=== PATIENT | female | born 1985 | race African-American/Black ===

== ENCOUNTER 2020-02-12 02:55 | Inpatient (IN) | payer OTHER ==
[~2020-02-12] VITALS: Ht 162.6 cm; Wt 54.4 kg
[2020-02-12] MEDS ORDERED: ONDANSETRON HCL 4MG/2ML INJ IV STA (03:15)
[2020-02-12] MEDS ORDERED: SODIUM CHLORIDE 0.9% 1000ML BAG (SEPSIS BOLUS) IV ONE (03:15)
[2020-02-12 04:24] LABS: CLARITY URINE CLOUDY (CLEAR); COLOR URINE ORANGE (YELLOW); HEMATOCRIT. 31.1 % (36.0-48.0); HEMOGLOBIN. 10.4 g/dL (12.0-16.0); KETONES URINE 4+ (NEGATIVE); LEUKOCYTE ESTERASE URINE TRACE (NEGATIVE); MEAN CORPUSCULAR HEMOGLOBIN 32.5 pg (28.0-32.0); MEAN CORPUSCULAR VOLUME 97.1 fL (81.0-99.0); MEAN PLATELET VOLUME 7.6 fl (7.4-10.4); NITRITE URINE NEGATIVE (NEGATIVE); OCCULT BLOOD URINE NEGATIVE (NEGATIVE); PH URINE 5.5 (4.5-8.0); PLATELET 89 x1000/uL (130-400); PROTEIN URINE 2+ (NEGATIVE); RED CELL DISTRIBUTION WIDTH 19.6 % (11.6-14.6); SPECIFIC GRAVITY URINE 1.036 (1.005-1.030)
[2020-02-12 04:31] LABS: CHLORIDE 99 mEq/L (98-107)
[2020-02-12 04:38] LABS: PROTHROMBIN TIME 10.6 sec (9.6-11.0)
[2020-02-12 04:39] LABS: HCG SCREEN NEGATIVE
[2020-02-12 04:53] LABS: PLATELET ESTIMATE DECREASED
[2020-02-12] MEDS ORDERED: KETOROLAC 30MG/ML VIAL IV SCH (05:00)
[2020-02-12] MEDS ORDERED: CLONIDINE 0.2MG TABLET PO ONE (05:00)
[2020-02-12] MEDS ORDERED: POTASSIUM CHLORIDE 20MEQ TABLET SR PO SCH (07:15)
[2020-02-12] MEDS ORDERED: GUAIFENESIN 200MG/10ML SUGAR FREE UDC PO PRN (07:15)
[2020-02-12] MEDS ORDERED: CLONIDINE 0.1MG TABLET PO PRN (07:15)
[2020-02-12] MEDS ORDERED: ALBUTEROL 6.7GM HFA INHALER ORI PRN (07:15)
[2020-02-12] MEDS ORDERED: DOCUSATE SODIUM 100MG CAPSULE PO PRN (07:15)
[2020-02-12] MEDS ORDERED: LORAZEPAM 0.5MG TABLET PO PRN (07:15)
[2020-02-12] MEDS ORDERED: ONDANSETRON HCL 4MG/2ML INJ IV PRN (07:15)
[2020-02-12] MEDS ORDERED: NITROGLYCERIN 0.4MG TABLET SL SL PRN (07:15)
[2020-02-12] MEDS ORDERED: ACETAMINOPHEN 325MG TABLET PO PRN ×2 (07:15)
[2020-02-12] MEDS ORDERED: KETOROLAC 15MG/ML VIAL IV PRN (07:15)
[2020-02-12] MEDS ORDERED: MAGNESIUM/ALUMINUM HYDROXIDE/SIMETHICONE 30ML UDC PO PRN (07:15)
[2020-02-12 08:32] LABS: FOLIC ACID (FOLATE) SERUM 10.9 ng/mL (>5.38)
[2020-02-12] MEDS: AMLODIPINE 10MG TABLET PO SCH (08:51)
[2020-02-12] MEDS: ENOXAPARIN 40MG/0.4ML SYR SUBCUT SCH (08:58)
[2020-02-12] MEDS: ZINC SULFATE 220 MG ( 50 ) CAPSULE PO SCH (09:08)
[2020-02-12] MEDS: FAMOTIDINE 20MG TABLET PO SCH ×2 (09:08→21:39)
[2020-02-12] MEDS: ASCORBIC ACID 500 MG TABLET PO SCH ×2 (09:09→21:39)
[2020-02-12] MEDS: LISINOPRIL 20MG TABLET PO SCH ×2 (09:41→21:39)
[2020-02-12] MEDS ORDERED: CEFTRIAXONE 1 G PREMIX 50 ML IV SCH ×2 (14:15)
[2020-02-12 15:00] VITALS: BP 115/86
[2020-02-12 16:00] VITALS: BP 115/86
[2020-02-12 20:00] VITALS: BP 130/87
[2020-02-12 20:16] LABS: CREATINE KINASE 117 IU/L (26-192)
[2020-02-12 20:18] LABS: CREATINE KINASE MB FRACTION < 1.0 ng/mL (0.5-3.6)
[2020-02-12] MEDS ORDERED: ZOLPIDEM TARTRATE 5MG TABLET PO PRN (21:00)
[2020-02-12 23:59] VITALS: BP 126/94
[2020-02-13 08:00] VITALS: BP 126/90
[2020-02-13 08:20] LABS: CHLORIDE 101 mEq/L (98-107)
[2020-02-13 08:33] LABS: BASOPHILS % 0.2 % (0.0-2.0); EOSINOPHILS % 1.8 % (0.0-5.0); HEMATOCRIT. 28.3 % (36.0-48.0); HEMOGLOBIN. 9.4 g/dL (12.0-16.0); LYMPHOCYTES % 29.1 % (20.0-50.0); MEAN CORPUSCULAR HEMOGLOBIN 32.6 pg (28.0-32.0); MEAN CORPUSCULAR VOLUME 97.9 fL (81.0-99.0); MEAN PLATELET VOLUME 8.3 fl (7.4-10.4); MONOCYTES % 3.7 % (2.0-8.0); NEUTROPHILS % 65.2 % (40.0-76.0); PLATELET 65 x1000/uL (130-400); RED BLOOD CELL COUNT 2.89 mill/uL (4.2-5.4); RED CELL DISTRIBUTION WIDTH 19.6 % (11.6-14.6)
[2020-02-13 08:34] LABS: PHOSPHORUS 2.9 mg/dL (2.5-4.9)
[2020-02-13 08:37] LABS: CREATINE KINASE 95 IU/L (26-192)
[2020-02-13 08:39] LABS: CREATINE KINASE MB FRACTION < 1.0 ng/mL (0.5-3.6)
[2020-02-13] MEDS ORDERED: POTASSIUM CHLORIDE 20MEQ/PACKET PO NR (09:00)
[2020-02-13] MEDS: ENOXAPARIN 40MG/0.4ML SYR SUBCUT SCH (09:00)
[2020-02-13] MEDS: ZINC SULFATE 220 MG ( 50 ) CAPSULE PO SCH (09:08)
[2020-02-13] MEDS: AMLODIPINE 10MG TABLET PO SCH (09:08)
[2020-02-13] MEDS: ASCORBIC ACID 500 MG TABLET PO SCH (09:08)
[2020-02-13] MEDS: LISINOPRIL 20MG TABLET PO SCH (09:08)
[2020-02-13] MEDS: FAMOTIDINE 20MG TABLET PO SCH (09:08)
[2020-02-13] MEDS ORDERED: AMLO10TA4 MT (10:14)
[2020-02-13 10:17] VITALS: BP 126/90
[2020-02-13] MEDS ORDERED: CEFTRIAXONE 1,000 MG in DEXTROSE 5% WATER 50 ML IV SCH (15:00)
== END 2020-02-13 10:35 | disposition home or self-care (01) | DRG 812 ==
LOC: ER 02:55 → 7WST 05:41 → EDBEDREQ 05:49 → EDBEDREQSVC 06:37 → EDBEDREQTM 06:39 → ENRESERV 13:47 → 8WST 23:32
PROVIDERS: ADMIT Internal Medicine; ATTEND Internal Medicine
DX: D50.9 Iron deficiency anemia, unspecified (principal); N39.0 Urinary tract infection, site not specified; E87.6 Hypokalemia; Z03.818 Encounter for observation for suspected exposure to other biological agents ruled out
CPT/HCPCS: 36415; 71045; 80053; 80061; 81003; 82550; 82553; 82607; 82746; 83036; 83540; 83550; 83605; 83735; 84100; 84145; 84484; 84703; 85025; 87635; 93005; 93970; 99291; J0696; J1885; J2405; J7030; J7060

== ENCOUNTER 2020-04-08 13:52 | Emergency (ER) | payer MEDICAID, OTHER ==
[~2020-04-08] VITALS: Ht 162.6 cm; Wt 54.0 kg
[~2020-04-08 13:52] MED LIST: AMLO10TA4 MT
[2020-04-08] MEDS ORDERED: LORAZEPAM 1MG TABLET PO ONE (15:15)
[2020-04-08] MEDS ORDERED: SODIUM CHLORIDE 0.9% 1,000 ML IV ONE (15:15)
[2020-04-08 19:22] VITALS: BP 129/89
== END 2020-04-08 20:07 | disposition home or self-care (01) ==
LOC: ER 13:52
DX: F10.239 Alcohol dependence with withdrawal, unspecified (principal); I10 Essential (primary) hypertension; Y90.9 Presence of alcohol in blood, level not specified
CPT/HCPCS: 93005; 96360; 96361; 99283; J7030

== ENCOUNTER 2020-10-14 05:53 | Emergency (ER) | payer MEDICAID ==
[~2020-10-14] VITALS: Ht 162.6 cm; Wt 57.0 kg
[2020-10-14] MEDS ORDERED: KETOROLAC 30MG/ML VIAL IV STA (06:19)
[2020-10-14 06:42] LABS: BASOPHILS % 0.7 % (0.0-2.0); EOSINOPHILS % 0.4 % (0.0-5.0); HEMATOCRIT. 28.8 % (36.0-48.0); HEMOGLOBIN. 9.5 g/dL (12.0-16.0); LYMPHOCYTES % 15.2 % (20.0-50.0); MEAN CORPUSCULAR HEMOGLOBIN 30.3 pg (28.0-32.0); MEAN CORPUSCULAR VOLUME 91.9 fL (81.0-99.0); MEAN PLATELET VOLUME 7.5 fl (7.4-10.4); NEUTROPHILS % 74.7 % (40.0-76.0); PLATELET 260 x1000/uL (130-400); RED BLOOD CELL COUNT 3.13 mill/uL (4.2-5.4)
[2020-10-14 06:46] LABS: CHLORIDE 104 mEq/L (98-107)
[2020-10-14 07:59] LABS: CLARITY URINE CLOUDY (CLEAR); COLOR URINE YELLOW (YELLOW); KETONES URINE NEGATIVE (NEGATIVE); LEUKOCYTE ESTERASE URINE 3+ (NEGATIVE); NITRITE URINE NEGATIVE (NEGATIVE); OCCULT BLOOD URINE 2+ (NEGATIVE); PH URINE 6.5 (4.5-8.0); PROTEIN URINE 1+ (NEGATIVE); SPECIFIC GRAVITY URINE 1.011 (1.005-1.030); UROBILINOGEN URINE 0.2 E.U./dL (0.2-1.0)
[2020-10-14 08:45] VITALS: BP 135/80
[2020-10-14] MEDS ORDERED: NITR100C PO (08:47)
== END 2020-10-14 09:19 | disposition home or self-care (01) ==
LOC: ER 05:53
DX: N39.0 Urinary tract infection, site not specified (principal); I10 Essential (primary) hypertension; F10.21 Alcohol dependence, in remission
CPT/HCPCS: 36415; 80053; 81003; 81025; 83690; 85025; 87077; 87086; 87186; 96374; 99283; J1885; Z7610

== ENCOUNTER 2021-02-28 22:21 | Inpatient (IN) | payer SELFPAY ==
[~2021-02-28] VITALS: Ht 162.6 cm; Wt 56.7 kg
[~2021-02-28 22:21] MED LIST changes: +NITR100C PO
[2021-02-28] MEDS ORDERED: ONDANSETRON 4MG ODT PO ONE (23:30)
[2021-03-01 00:17] LABS: BASOPHILS % 0.3 % (0.0-2.0); EOSINOPHILS % 0.2 % (0.0-5.0); HEMATOCRIT. 32.6 % (36.0-48.0); HEMOGLOBIN. 10.9 g/dL (12.0-16.0); LYMPHOCYTES % 9.6 % (20.0-50.0); MEAN CORPUSCULAR HEMOGLOBIN 31.9 pg (28.0-32.0); MEAN CORPUSCULAR VOLUME 95.1 fL (81.0-99.0); MEAN PLATELET VOLUME 6.7 fl (7.4-10.4); MONOCYTES % 2.1 % (2.0-8.0); NEUTROPHILS % 87.8 % (40.0-76.0); PLATELET 211 x1000/uL (130-400); RED BLOOD CELL COUNT 3.43 mill/uL (4.2-5.4); RED CELL DISTRIBUTION WIDTH 23.1 % (11.6-14.6)
[2021-03-01 00:26] LABS: HCG SCREEN NEGATIVE
[2021-03-01 00:45] LABS: CHLORIDE 108 mEq/L (98-107)
[2021-03-01 00:49] LABS: ETHANOL BLOOD 206 mg/dL
[2021-03-01] MEDS ORDERED: ONDANSETRON HCL 4MG/2ML INJ IV STA ×2 (01:10→05:02)
[2021-03-01] MEDS ORDERED: KETOROLAC 30MG/ML VIAL IV STA (01:10)
[2021-03-01] MEDS ORDERED: FAMOTIDINE 20MG/2ML VIAL IV ONE (01:15)
[2021-03-01] MEDS ORDERED: SODIUM CHLORIDE 0.9% 1,000 ML IV ONE ×2 (01:15→02:00)
[2021-03-01 01:38] LABS: CLARITY URINE CLEAR (CLEAR); COLOR URINE YELLOW (YELLOW); KETONES URINE TRACE (NEGATIVE); LEUKOCYTE ESTERASE URINE NEGATIVE (NEGATIVE); NITRITE URINE NEGATIVE (NEGATIVE); OCCULT BLOOD URINE NEGATIVE (NEGATIVE); PROTEIN URINE 1+ (NEGATIVE); SPECIFIC GRAVITY URINE 1.024 (1.005-1.030)
[2021-03-01] MEDS ORDERED: MORPHINE SULFATE 4 MG/ML CPJ (NOT FOR IM USE) IV STA ×2 (01:58→05:02)
[2021-03-01 03:25] LABS: PLATELET ESTIMATE NORMAL
[2021-03-01] MEDS ORDERED: AMLODIPINE 10MG TABLET PO ONE (05:15)
[2021-03-01] MEDS ORDERED: ONDANSETRON HCL 4MG/2ML INJ IV PRN (06:30)
[2021-03-01] MEDS ORDERED: MORPHINE SULFATE 2 MG/ML CPJ (NOT FOR IM USE) IV PRN (06:30)
[2021-03-01] MEDS ORDERED: ACETAMINOPHEN 650MG SUPP PR PRN (06:30)
[2021-03-01] MEDS ORDERED: NALOXONE HCL 0.4MG/ML VIAL IV PRN (07:15)
[2021-03-01] MEDS: DEXT 5%/0.45% NACL 1000ML 1,000 ML IV SCH ×2 (09:05→18:26)
[2021-03-01] MEDS: ENALAPRIL 1.25MG/ML VIAL 1ML IV SCH ×3 (09:16→18:25)
[2021-03-01] MEDS: HYDROMORPHONE HCL/PF 2MG/ML CPJ IV PRN ×3 (12:24→20:51)
[2021-03-01] MEDS: CLONIDINE 0.1MG TABLET PO PRN (22:22)
[2021-03-02] MEDS: ENALAPRIL 1.25MG/ML VIAL 1ML IV SCH ×3 (00:08→13:46)
[2021-03-02] MEDS: HYDROMORPHONE HCL/PF 2MG/ML CPJ IV PRN ×6 (01:14→23:02)
[2021-03-02] MEDS: DEXT 5%/0.45% NACL 1000ML 1,000 ML IV SCH ×3 (02:49→22:56)
[2021-03-02 05:13] LABS: HEMATOCRIT. 28.2 % (36.0-48.0); HEMOGLOBIN. 9.4 g/dL (12.0-16.0); MEAN CORPUSCULAR HEMOGLOBIN 32.4 pg (28.0-32.0); MEAN CORPUSCULAR VOLUME 96.9 fL (81.0-99.0); MEAN PLATELET VOLUME 7.4 fl (7.4-10.4); PLATELET 129 x1000/uL (130-400); RED BLOOD CELL COUNT 2.91 mill/uL (4.2-5.4); RED CELL DISTRIBUTION WIDTH 23.4 % (11.6-14.6)
[2021-03-02 05:17] LABS: CHLORIDE 103 mEq/L (98-107)
[2021-03-02 12:18] LABS: PLATELET ESTIMATE SLIGHTLY DECREASED
[2021-03-02] MEDS ORDERED: POTASSIUM CHLORIDE INJ 40 MEQ in DEXT 5% WATER 500 ML IV SCH (13:00)
[2021-03-02 20:00] VITALS: BP 129/100
[2021-03-02 21:00] VITALS: BP 129/100
[2021-03-02] MEDS: CLONIDINE 0.1MG TABLET PO PRN (23:10)
[2021-03-03] VITALS: BP 148/109
[2021-03-03] MEDS: HYDROMORPHONE HCL/PF 2MG/ML CPJ IV PRN ×5 (03:13→22:27)
[2021-03-03 04:00] VITALS: BP 131/100
[2021-03-03] MEDS: CLONIDINE 0.1MG TABLET PO PRN (05:21)
[2021-03-03 06:18] LABS: BASOPHILS % 0.1 % (0.0-2.0); EOSINOPHILS % 0.9 % (0.0-5.0); HEMATOCRIT. 26.9 % (36.0-48.0); HEMOGLOBIN. 9.2 g/dL (12.0-16.0); LYMPHOCYTES % 10.7 % (20.0-50.0); MEAN CORPUSCULAR HEMOGLOBIN 33.2 pg (28.0-32.0); MEAN CORPUSCULAR VOLUME 97.3 fL (81.0-99.0); MEAN PLATELET VOLUME 7.8 fl (7.4-10.4); MONOCYTES % 4.2 % (2.0-8.0); NEUTROPHILS % 84.1 % (40.0-76.0); PLATELET 128 x1000/uL (130-400); RED BLOOD CELL COUNT 2.77 mill/uL (4.2-5.4); RED CELL DISTRIBUTION WIDTH 23.4 % (11.6-14.6)
[2021-03-03 06:34] LABS: CHLORIDE 101 mEq/L (98-107)
[2021-03-03 08:00] VITALS: BP 134/98
[2021-03-03] MEDS: DEXT 5%/0.45% NACL 1000ML 1,000 ML IV SCH ×2 (09:20→21:20)
[2021-03-03 12:00] VITALS: BP 119/90
[2021-03-03 20:00] VITALS: BP 148/104
[2021-03-03] MEDS: AMLODIPINE 5MG TABLET PO SCH (21:20)
[2021-03-04] VITALS: BP 150/107
[2021-03-04] MEDS: HYDROMORPHONE HCL/PF 2MG/ML CPJ IV PRN ×2 (02:38→07:09)
[2021-03-04] MEDS: CLONIDINE 0.1MG TABLET PO PRN ×2 (02:44→12:03)
[2021-03-04 04:00] VITALS: BP 135/99
[2021-03-04] MEDS: DEXT 5%/0.45% NACL 1000ML 1,000 ML IV SCH ×2 (05:55→15:05)
[2021-03-04 08:00] VITALS: BP 140/93
[2021-03-04] MEDS: AMLODIPINE 5MG TABLET PO SCH (08:46)
[2021-03-04 12:00] VITALS: BP 133/102
[2021-03-04] MEDS ORDERED: ACETAMINOPHEN 325MG TABLET PO PRN (12:00)
[2021-03-04 15:30] VITALS: BP 121/90
[2021-03-04 16:00] VITALS: BP 121/90
== END 2021-03-04 16:38 | disposition home or self-care (01) | DRG 282 ==
LOC: ER 23:50 → MICUSO 03-01 02:10 → EDBEDREQ 03-01 02:16 → EDBEDREQTM 03-01 02:16 → 6EST 03-02 16:38
PROVIDERS: ADMIT Hospitalist; ATTEND Hospitalist
DX: K85.90 Acute pancreatitis without necrosis or infection, unspecified (principal); R16.0 Hepatomegaly, not elsewhere classified; F10.10 Alcohol abuse, uncomplicated; I10 Essential (primary) hypertension; F17.200 Nicotine dependence, unspecified, uncomplicated; Y90.9 Presence of alcohol in blood, level not specified; Z20.822 Contact with and (suspected) exposure to COVID-19
CPT/HCPCS: 36415; 74176; 76705; 80053; 80320; 81003; 84703; 85025; 87426; 93005; 99285; J1170; J1885; J2270; J2405; J3480; J3490; J7030; J7060; Q0162; G0480

== ENCOUNTER 2021-07-11 16:26 | Emergency (ER) | payer MEDICAID ==
[~2021-07-11] VITALS: Ht 165.1 cm; Wt 75.0 kg
[2021-07-11 17:38] VITALS: BP 151/119
== END 2021-07-11 17:55 | disposition home or self-care (01) ==
LOC: ER 16:26
DX: U07.1 COVID-19 (principal); I10 Essential (primary) hypertension
CPT/HCPCS: 99283; C9803; U0003; U0005

== ENCOUNTER 2022-01-14 19:37 | Inpatient (IN) | payer SELFPAY ==
[~2022-01-14] VITALS: Ht 162.6 cm; Wt 45.4 kg
[2022-01-14] MEDS ORDERED: FAMOTIDINE 20MG/2ML VIAL IV STA (19:52)
[2022-01-14] MEDS ORDERED: MORPHINE SULFATE 4 MG/ML CPJ (NOT FOR IM USE) IV STA ×2 (19:52→22:48)
[2022-01-14] MEDS ORDERED: ONDANSETRON HCL 4MG/2ML INJ IV STA ×2 (19:52→22:48)
[2022-01-14] MEDS ORDERED: SODIUM CHLORIDE 0.9% 1,000 ML IV ONE (20:00)
[2022-01-14 20:27] LABS: CLARITY URINE CLEAR (CLEAR); COLOR URINE YELLOW (YELLOW); KETONES URINE NEGATIVE (NEGATIVE); LEUKOCYTE ESTERASE URINE TRACE (NEGATIVE); NITRITE URINE NEGATIVE (NEGATIVE); OCCULT BLOOD URINE NEGATIVE (NEGATIVE); PH URINE 8.5 (4.5-8.0); PROTEIN URINE NEGATIVE (NEGATIVE); SPECIFIC GRAVITY URINE 1.008 (1.005-1.030); UROBILINOGEN URINE 0.2 E.U./dL (0.2-1.0)
[2022-01-14 21:31] LABS: CHLORIDE 101 mEq/L (98-107)
[2022-01-14 21:32] LABS: BASOPHILS % 0.4 % (0.0-2.0); EOSINOPHILS % 0.3 % (0.0-5.0); HEMATOCRIT. 32.9 % (36.0-48.0); HEMOGLOBIN. 10.6 g/dL (12.0-16.0); LYMPHOCYTES % 30.1 % (20.0-50.0); MEAN CORPUSCULAR HEMOGLOBIN 29.3 pg (28.0-32.0); MEAN CORPUSCULAR VOLUME 91.1 fL (81.0-99.0); MEAN PLATELET VOLUME 7.5 fl (7.4-10.4); MONOCYTES % 6.6 % (2.0-8.0); NEUTROPHILS % 62.6 % (40.0-76.0); PLATELET 272 x1000/uL (130-400); RED BLOOD CELL COUNT 3.61 mill/uL (4.2-5.4); RED CELL DISTRIBUTION WIDTH 21.5 % (11.6-14.6)
[2022-01-14] MEDS ORDERED: ONDANSETRON HCL 4MG/2ML INJ IV NR (21:45)
[2022-01-14] MEDS ORDERED: MORPHINE SULFATE 4 MG/ML CPJ (NOT FOR IM USE) IV NR (21:45)
[2022-01-14] MEDS ORDERED: FAMOTIDINE 20MG/2ML VIAL IV NR (21:45)
[2022-01-14 21:53] LABS: HCG SCREEN NEGATIVE
[2022-01-14] MEDS ORDERED: HYDRALAZINE 20MG/ML VIAL IV ONE (23:00)
[2022-01-14] MEDS ORDERED: MORPHINE SULFATE 2 MG/ML CPJ (NOT FOR IM USE) IV PRN (23:30)
[2022-01-14] MEDS ORDERED: ACETAMINOPHEN 325MG TABLET PO PRN (23:30)
[2022-01-14] MEDS ORDERED: ONDANSETRON HCL 4MG/2ML INJ IV PRN (23:30)
[2022-01-15] MEDS: SODIUM CHLORIDE 0.9% 1,000 ML IV SCH ×2 (00:40→04:43)
[2022-01-15] MEDS: AMLODIPINE 10MG TABLET PO SCH ×2 (00:56→10:41)
[2022-01-15 04:35] LABS: BASOPHILS % 0.7 % (0.0-2.0); EOSINOPHILS % 0.1 % (0.0-5.0); HEMATOCRIT. 31.5 % (36.0-48.0); HEMOGLOBIN. 10.4 g/dL (12.0-16.0); LYMPHOCYTES % 17.1 % (20.0-50.0); MEAN PLATELET VOLUME 7.2 fl (7.4-10.4); MONOCYTES % 4.9 % (2.0-8.0); NEUTROPHILS % 77.2 % (40.0-76.0); PLATELET 246 x1000/uL (130-400); RED BLOOD CELL COUNT 3.46 mill/uL (4.2-5.4); RED CELL DISTRIBUTION WIDTH 21.4 % (11.6-14.6)
[2022-01-15 04:48] LABS: CHLORIDE 104 mEq/L (98-107)
[2022-01-15] MEDS ORDERED: ENOXAPARIN 40MG/0.4ML SYR SUBCUT SCH (09:00)
[2022-01-15 09:30] VITALS: BP 156/113
[2022-01-15 10:00] VITALS: BP 156/113
[2022-01-15] MEDS: CLONIDINE 0.1MG TABLET PO PRN ×2 (10:41→16:19)
[2022-01-15] MEDS ORDERED: KETOROLAC 30MG/ML VIAL IV PRN (11:00)
[2022-01-15] MEDS ORDERED: LOSARTAN POTASSIUM 50 MG TABLET PO SCH (11:00)
[2022-01-15 12:00] VITALS: BP 122/91
[2022-01-15 15:43] VITALS: BP 128/106
[2022-01-15] MEDS ORDERED: AMLO10TA4 MT (16:44)
[2022-01-15] MEDS ORDERED: LOSA50TA3 PO (16:44)
[2022-01-15 17:49] VITALS: BP 109/68
== END 2022-01-15 19:00 | disposition home or self-care (01) | DRG 282 ==
LOC: ER 19:37 → MICUSO 23:16 → 6WST 01-15 10:07
PROVIDERS: ADMIT Internal Medicine Nephrology; ATTEND Internal Medicine Nephrology
DX: K85.90 Acute pancreatitis without necrosis or infection, unspecified (principal); E87.6 Hypokalemia; I10 Essential (primary) hypertension; I16.0 Hypertensive urgency; F10.10 Alcohol abuse, uncomplicated; Y90.9 Presence of alcohol in blood, level not specified; Z71.42 Counseling for family member of alcoholic
CPT/HCPCS: 36415; 80048; 80053; 81003; 83735; 84703; 85025; 99285; J0360; J1650; J2270; J2405; J3490; J7030

== ENCOUNTER 2022-04-13 03:56 | Inpatient (IN) | payer SELFPAY ==
[~2022-04-13] VITALS: Ht 162.6 cm; Wt 72.6 kg
[~2022-04-13 03:56] MED LIST changes: +LOSA50TA3 PO; -NITR100C PO
[2022-04-13] MEDS ORDERED: SODIUM CHLORIDE 0.9% 1,000 ML IV ONE (04:45)
[2022-04-13] MEDS ORDERED: ONDANSETRON HCL 4MG/2ML INJ IV STA (05:08)
[2022-04-13] MEDS ORDERED: MORPHINE SULFATE 4 MG/ML CPJ (NOT FOR IM USE) IV STA (05:08)
[2022-04-13 05:09] LABS: BASOPHILS % 0.7 % (0.0-2.0); EOSINOPHILS % 0.2 % (0.0-5.0); HEMATOCRIT. 29.1 % (36.0-48.0); HEMOGLOBIN. 9.6 g/dL (12.0-16.0); LYMPHOCYTES % 52.1 % (20.0-50.0); MEAN CORPUSCULAR HEMOGLOBIN 30.5 pg (28.0-32.0); MEAN CORPUSCULAR VOLUME 92.7 fL (81.0-99.0); MEAN PLATELET VOLUME 6.9 fl (7.4-10.4); MONOCYTES % 5.6 % (2.0-8.0); NEUTROPHILS % 41.4 % (40.0-76.0); PLATELET 212 x1000/uL (130-400); RED BLOOD CELL COUNT 3.13 mill/uL (4.2-5.4); RED CELL DISTRIBUTION WIDTH 21.5 % (11.6-14.6)
[2022-04-13 05:19] LABS: CHLORIDE 104 mEq/L (98-107)
[2022-04-13 05:24] LABS: HCG SCREEN NEGATIVE
[2022-04-13] MEDS ORDERED: MORPHINE SULFATE 4 MG/ML CPJ (NOT FOR IM USE) IV ONE (06:45)
[2022-04-13] MEDS ORDERED: ONDANSETRON HCL 4MG/2ML INJ IV ONE (07:15)
[2022-04-13] MEDS ORDERED: HYDRALAZINE 20MG/ML VIAL IV ONE (07:45)
[2022-04-13] MEDS ORDERED: IPRATROPIUM/ALBUTEROL 0.5-3(2.5)MG/3ML NEB HHN PRN (10:00)
[2022-04-13] MEDS ORDERED: MORPHINE SULFATE 2 MG/ML CPJ (NOT FOR IM USE) IV PRN (10:00)
[2022-04-13] MEDS ORDERED: HYDRALAZINE 20MG/ML VIAL IV PRN (11:30)
[2022-04-13] MEDS: PANTOPRAZOLE SODIUM 40 MG/VIAL IV SCH (12:08)
[2022-04-13] MEDS: ONDANSETRON HCL 4MG/2ML INJ IV PRN (12:08)
[2022-04-13] MEDS ORDERED: NACL IV ONE (12:30)
[2022-04-13] MEDS ORDERED: DEXT IV ONE (12:30)
[2022-04-13] MEDS ORDERED: POTASSIUM ACETATE IV ONE (12:30)
[2022-04-13] MEDS: HYDROMORPHONE HCL/PF 2MG/ML CPJ IV PRN (12:47)
[2022-04-13] MEDS: SODIUM CHLORIDE 0.9% 1,000 ML IV SCH (13:25)
[2022-04-13 16:00] VITALS: BP 157/110
[2022-04-13 16:07] VITALS: BP 140/86
[2022-04-13] MEDS: HYDRALAZINE 10 MG in SODIUM CHLORIDE 0.9% 49.5 ML IV PRN (16:36)
[2022-04-13] MEDS ORDERED: METOCLOPRAMIDE HCL 10MG TABLET PO PRN (17:45)
[2022-04-13] MEDS ORDERED: METOCLOPRAMIDE HCL 10MG/2ML VIAL IV PRN (18:00)
[2022-04-13] MEDS: LORAZEPAM 2MG/ML CPJ IV PRN (18:45)
[2022-04-13 20:00] VITALS: BP 137/99
[2022-04-13] MEDS: FOLIC ACID 1 MG, THIAMINE HCL 100 MG, MVI, ADULT NO.1 10 ML in DEXTROSE 5% WATER 1,000 ML IV SCH ×4 (23:06)
[2022-04-14] VITALS: BP 174/121
[2022-04-14] MEDS: HYDROMORPHONE HCL/PF 2MG/ML CPJ IV PRN ×4 (00:40→20:07)
[2022-04-14] MEDS: HYDRALAZINE 10 MG in SODIUM CHLORIDE 0.9% 49.5 ML IV PRN ×3 (01:10→20:07)
[2022-04-14] MEDS: SODIUM CHLORIDE 0.9% 1,000 ML IV SCH ×2 (03:04→19:20)
[2022-04-14 07:29] LABS: BASOPHILS % 0.1 % (0.0-2.0); EOSINOPHILS % 0.2 % (0.0-5.0); HEMATOCRIT. 32.1 % (36.0-48.0); HEMOGLOBIN. 10.5 g/dL (12.0-16.0); MEAN CORPUSCULAR HEMOGLOBIN 30.4 pg (28.0-32.0); MEAN CORPUSCULAR VOLUME 93.4 fL (81.0-99.0); MEAN PLATELET VOLUME 7.5 fl (7.4-10.4); MONOCYTES % 6.1 % (2.0-8.0); NEUTROPHILS % 76.6 % (40.0-76.0); PLATELET 200 x1000/uL (130-400); RED BLOOD CELL COUNT 3.44 mill/uL (4.2-5.4); RED CELL DISTRIBUTION WIDTH 21.1 % (11.6-14.6)
[2022-04-14 08:11] LABS: CHLORIDE 99 mEq/L (98-107)
[2022-04-14 08:24] LABS: AMYLASE 127 IU/L (25-115); PHOSPHORUS 2.4 mg/dL (2.5-4.9)
[2022-04-14 08:34] LABS: CLARITY URINE CLEAR (CLEAR); COLOR URINE YELLOW (YELLOW); KETONES URINE 1+ (NEGATIVE); LEUKOCYTE ESTERASE URINE NEGATIVE (NEGATIVE); NITRITE URINE NEGATIVE (NEGATIVE); OCCULT BLOOD URINE TRACE (NEGATIVE); PH URINE 8.5 (4.5-8.0); PROTEIN URINE 2+ (NEGATIVE); UROBILINOGEN URINE 0.2 E.U./dL (0.2-1.0)
[2022-04-14 09:17] LABS: *AMPHETAMINES SCREEN URINE NEGATIVE (NEGATIVE); *BARBITURATES SCREEN URINE NEGATIVE (NEGATIVE); *BENZODIAZEPINES SCREEN URINE NEGATIVE (NEGATIVE); *COCAINE SCREEN URINE NEGATIVE (NEGATIVE); CANNABINOID URINE SCREEN NEGATIVE (NEGATIVE); METHADONE URINE SCREEN NEGATIVE (NEGATIVE); PHENCYCLIDINE URINE SCREEN NEGATIVE (NEGATIVE)
[2022-04-14 09:24] LABS: OPIATES URINE SCREEN PRESUMTIVE POSITIVE (NEGATIVE)
[2022-04-14] MEDS: ONDANSETRON HCL 4MG/2ML INJ IV PRN ×2 (09:43→22:45)
[2022-04-14] MEDS: PANTOPRAZOLE SODIUM 40 MG/VIAL IV SCH (09:43)
[2022-04-14 09:45] VITALS: BP 184/131
[2022-04-14] MEDS: LORAZEPAM 2MG/ML CPJ IV PRN (09:57)
[2022-04-14] MEDS ORDERED: POTASSIUM CHLORIDE 20MEQ TABLET SR PO SCH (10:30)
[2022-04-14 11:58] VITALS: BP 173/115
[2022-04-14] MEDS ORDERED: POTASSIUM PHOS,M-BASIC-D-BASIC 10 MMOL in DEXT 5% WATER 250 ML IV SCH (12:00)
[2022-04-14 16:00] VITALS: BP 162/86
[2022-04-14] MEDS ORDERED: POTASSIUM CHLORIDE 20MEQ TABLET SR PO NR (17:15)
[2022-04-14] MEDS ORDERED: POTASSIUM PHOS,M-BASIC-D-BASIC 10 MMOL in DEXT 5% WATER 246.6667 ML IV NR (18:00)
[2022-04-14] MEDS ORDERED: NALOXONE HCL 0.4MG/ML VIAL IV PRN (22:45)
[2022-04-14] MEDS: FOLIC ACID 1 MG, THIAMINE HCL 100 MG, MVI, ADULT NO.1 10 ML in DEXTROSE 5% WATER 1,000 ML IV SCH ×4 (23:57)
[2022-04-15] MEDS: HYDROMORPHONE HCL/PF 2MG/ML CPJ IV PRN ×3 (02:20→17:41)
[2022-04-15] MEDS: HYDRALAZINE 10 MG in SODIUM CHLORIDE 0.9% 49.5 ML IV PRN ×2 (02:24→17:40)
[2022-04-15] MEDS: LORAZEPAM 2MG/ML CPJ IV PRN (05:07)
[2022-04-15 08:00] VITALS: BP 124/91
[2022-04-15 08:42] LABS: BASOPHILS % 0.2 % (0.0-2.0); EOSINOPHILS % 0.9 % (0.0-5.0); HEMATOCRIT. 32.2 % (36.0-48.0); HEMOGLOBIN. 10.5 g/dL (12.0-16.0); LYMPHOCYTES % 16.2 % (20.0-50.0); MEAN CORPUSCULAR HEMOGLOBIN 30.6 pg (28.0-32.0); MEAN CORPUSCULAR VOLUME 94.4 fL (81.0-99.0); MEAN PLATELET VOLUME 7.9 fl (7.4-10.4); MONOCYTES % 5.5 % (2.0-8.0); NEUTROPHILS % 77.2 % (40.0-76.0); PLATELET 181 x1000/uL (130-400); RED BLOOD CELL COUNT 3.42 mill/uL (4.2-5.4); RED CELL DISTRIBUTION WIDTH 21.3 % (11.6-14.6)
[2022-04-15] MEDS: PANTOPRAZOLE SODIUM 40 MG/VIAL IV SCH (08:43)
[2022-04-15 08:50] LABS: CHLORIDE 97 mEq/L (98-107)
[2022-04-15 08:55] LABS: AMYLASE 127 IU/L (25-115)
[2022-04-15 12:00] VITALS: BP 145/92
[2022-04-15] MEDS: CHLORDIAZEPOXIDE 25MG CAPSULE PO SCH ×2 (13:29→22:19)
[2022-04-15] MEDS: KCL 20MEQ/100ML PREMIX 100 ML IV SCH ×2 (14:26→14:27)
[2022-04-15 16:00] VITALS: BP 164/113
[2022-04-15] MEDS: DEXT 5%/0.9% NACL 1,000 ML IV SCH ×2 (19:00→20:00)
[2022-04-15 20:00] VITALS: BP 137/98
[2022-04-16] VITALS: BP 163/111
[2022-04-16] MEDS: HYDRALAZINE 10 MG in SODIUM CHLORIDE 0.9% 49.5 ML IV PRN (00:55)
[2022-04-16] MEDS: HYDROMORPHONE HCL/PF 2MG/ML CPJ IV PRN ×4 (00:56→23:50)
[2022-04-16] MEDS: CHLORDIAZEPOXIDE 25MG CAPSULE PO SCH ×3 (06:42→22:34)
[2022-04-16 08:07] LABS: BASOPHILS % 0.1 % (0.0-2.0); EOSINOPHILS % 0.8 % (0.0-5.0); HEMATOCRIT. 27.1 % (36.0-48.0); LYMPHOCYTES % 12.2 % (20.0-50.0); MEAN CORPUSCULAR HEMOGLOBIN 31.2 pg (28.0-32.0); MEAN CORPUSCULAR VOLUME 93.4 fL (81.0-99.0); MEAN PLATELET VOLUME 7.8 fl (7.4-10.4); MONOCYTES % 8.1 % (2.0-8.0); NEUTROPHILS % 78.8 % (40.0-76.0); PLATELET 170 x1000/uL (130-400); RED CELL DISTRIBUTION WIDTH 20.9 % (11.6-14.6)
[2022-04-16 08:17] LABS: CHLORIDE 99 mEq/L (98-107)
[2022-04-16 08:27] LABS: AMYLASE 99 IU/L (25-115)
[2022-04-16] MEDS: MULTIVITAMINS,THER W-MINERALS TABLET PO SCH (09:00)
[2022-04-16] MEDS: PANTOPRAZOLE SODIUM 40 MG/VIAL IV SCH (09:57)
[2022-04-16] MEDS: DEXT 5%/0.9% NACL 1,000 ML IV SCH ×2 (11:00→19:00)
[2022-04-16] MEDS ORDERED: KCL 20MEQ/100ML PREMIX 100 ML IV SCH (12:00)
[2022-04-16] MEDS ORDERED: KCL 20MEQ/100ML PREMIX 100 ML IV ONE (13:45)
[2022-04-16] MEDS: FOLIC ACID 1MG TABLET PO SCH (15:17)
[2022-04-16] MEDS: THIAMINE HCL 100MG TABLET PO SCH (15:17)
[2022-04-16 20:46] VITALS: BP 174/111
[2022-04-17] VITALS: BP 146/112
[2022-04-17] MEDS: CLONIDINE 0.1MG TABLET PO PRN ×2 (00:45→10:16)
[2022-04-17] MEDS: DEXT 5%/0.9% NACL 1,000 ML IV SCH ×3 (03:00→19:03)
[2022-04-17 04:00] VITALS: BP 143/106
[2022-04-17] MEDS ORDERED: KCL 20MEQ/100ML PREMIX 100 ML IV SCH (05:15)
[2022-04-17] MEDS: HYDROMORPHONE HCL/PF 2MG/ML CPJ IV PRN ×2 (05:54→18:28)
[2022-04-17 06:09] LABS: BASOPHILS % 0.2 % (0.0-2.0); EOSINOPHILS % 1.2 % (0.0-5.0); HEMATOCRIT. 27.5 % (36.0-48.0); LYMPHOCYTES % 19.5 % (20.0-50.0); MEAN CORPUSCULAR HEMOGLOBIN 30.9 pg (28.0-32.0); MEAN CORPUSCULAR VOLUME 94.8 fL (81.0-99.0); MEAN PLATELET VOLUME 7.7 fl (7.4-10.4); MONOCYTES % 9.2 % (2.0-8.0); NEUTROPHILS % 69.9 % (40.0-76.0); PLATELET 161 x1000/uL (130-400); RED CELL DISTRIBUTION WIDTH 21.3 % (11.6-14.6)
[2022-04-17] MEDS: CHLORDIAZEPOXIDE 25MG CAPSULE PO SCH ×3 (06:25→22:29)
[2022-04-17 07:14] LABS: CHLORIDE 104 mEq/L (98-107)
[2022-04-17 07:26] LABS: AMYLASE 60 IU/L (25-115)
[2022-04-17 08:00] VITALS: BP 138/100
[2022-04-17] MEDS: FOLIC ACID 1MG TABLET PO SCH (10:15)
[2022-04-17] MEDS: THIAMINE HCL 100MG TABLET PO SCH (10:15)
[2022-04-17] MEDS: MULTIVITAMINS,THER W-MINERALS TABLET PO SCH (10:15)
[2022-04-17] MEDS: PANTOPRAZOLE SODIUM 40 MG/VIAL IV SCH (10:16)
[2022-04-17 12:00] VITALS: BP 137/108
[2022-04-17] MEDS: METRONIDAZOLE 500 MG PREMIX 100 ML IV SCH ×2 (15:45→22:29)
[2022-04-17 16:00] VITALS: BP 149/116
[2022-04-17] MEDS: DIPHENHYDRAMINE 50MG/ML VIAL IV PRN ×2 (16:17→21:29)
[2022-04-17] MEDS: LEVOFLOXACIN 750MG PREMIX 150 ML IV SCH (18:28)
[2022-04-17] MEDS: LORAZEPAM 2MG/ML CPJ IV PRN (19:11)
[2022-04-17 20:00] VITALS: BP 141/104
[2022-04-17] MEDS: HYDRALAZINE 10 MG in SODIUM CHLORIDE 0.9% 49.5 ML IV PRN (21:14)
[2022-04-17] MEDS ORDERED: DIPHENHYDRAMINE 50MG/ML VIAL ONE (21:22)
[2022-04-18] VITALS: BP 127/93
[2022-04-18] MEDS: KCL 20MEQ/100ML PREMIX 100 ML IV SCH ×2 (00:10→04:18)
[2022-04-18] MEDS: HYDROMORPHONE HCL/PF 2MG/ML CPJ IV PRN ×3 (00:11→20:42)
[2022-04-18 04:00] VITALS: BP 133/95
[2022-04-18] MEDS: CLONIDINE 0.1MG TABLET PO PRN ×2 (04:19→20:43)
[2022-04-18] MEDS: DIPHENHYDRAMINE 50MG/ML VIAL IV PRN (04:24)
[2022-04-18] MEDS: CHLORDIAZEPOXIDE 25MG CAPSULE PO SCH ×3 (05:53→21:02)
[2022-04-18] MEDS: METRONIDAZOLE 500 MG PREMIX 100 ML IV SCH ×3 (05:53→21:02)
[2022-04-18 08:00] VITALS: BP 157/117
[2022-04-18 08:14] LABS: BASOPHILS % 0.3 % (0.0-2.0); EOSINOPHILS % 0.8 % (0.0-5.0); HEMATOCRIT. 26.5 % (36.0-48.0); HEMOGLOBIN. 8.8 g/dL (12.0-16.0); LYMPHOCYTES % 18.7 % (20.0-50.0); MEAN CORPUSCULAR HEMOGLOBIN 31.3 pg (28.0-32.0); MEAN CORPUSCULAR VOLUME 94.3 fL (81.0-99.0); MEAN PLATELET VOLUME 7.5 fl (7.4-10.4); MONOCYTES % 5.7 % (2.0-8.0); NEUTROPHILS % 74.5 % (40.0-76.0); PLATELET 167 x1000/uL (130-400); RED BLOOD CELL COUNT 2.81 mill/uL (4.2-5.4); RED CELL DISTRIBUTION WIDTH 21.4 % (11.6-14.6)
[2022-04-18 08:59] LABS: CHLORIDE 107 mEq/L (98-107); CREATINE KINASE 77 IU/L (26-192)
[2022-04-18] MEDS: FOLIC ACID 1MG TABLET PO SCH (09:15)
[2022-04-18] MEDS: THIAMINE HCL 100MG TABLET PO SCH (09:15)
[2022-04-18] MEDS: MULTIVITAMINS,THER W-MINERALS TABLET PO SCH (09:15)
[2022-04-18] MEDS: PANTOPRAZOLE SODIUM 40 MG/VIAL IV SCH (09:19)
[2022-04-18] MEDS: DEXT 5%/0.9% NACL 1,000 ML IV SCH ×2 (11:00→19:00)
[2022-04-18 12:00] VITALS: BP 150/103
[2022-04-18] MEDS ORDERED: POTASSIUM CHLORIDE 20MEQ/PACKET PO NR (12:15)
[2022-04-18] MEDS: LEVOFLOXACIN 750MG PREMIX 150 ML IV SCH (14:38)
[2022-04-18] MEDS: ACETAMINOPHEN 325MG TABLET PO PRN ×2 (14:38→18:49)
[2022-04-18 16:00] VITALS: BP 127/84
[2022-04-18 20:00] VITALS: BP 159/108
[2022-04-19] VITALS: BP 130/95
[2022-04-19] MEDS: DEXT 5%/0.9% NACL 1,000 ML IV SCH ×2 (02:24→12:43)
[2022-04-19 04:00] VITALS: BP 136/102
[2022-04-19] MEDS: METRONIDAZOLE 500 MG PREMIX 100 ML IV SCH (05:49)
[2022-04-19] MEDS: CHLORDIAZEPOXIDE 25MG CAPSULE PO SCH ×2 (05:50→14:59)
[2022-04-19 06:59] LABS: BASOPHILS % 0.2 % (0.0-2.0); EOSINOPHILS % 1.2 % (0.0-5.0); HEMATOCRIT. 27.1 % (36.0-48.0); HEMOGLOBIN. 9.1 g/dL (12.0-16.0); LYMPHOCYTES % 13.2 % (20.0-50.0); MEAN CORPUSCULAR VOLUME 92.8 fL (81.0-99.0); MEAN PLATELET VOLUME 7.7 fl (7.4-10.4); MONOCYTES % 7.6 % (2.0-8.0); NEUTROPHILS % 77.8 % (40.0-76.0); PLATELET 223 x1000/uL (130-400); RED BLOOD CELL COUNT 2.92 mill/uL (4.2-5.4); RED CELL DISTRIBUTION WIDTH 21.1 % (11.6-14.6)
[2022-04-19 07:40] LABS: CHLORIDE 105 mEq/L (98-107)
[2022-04-19 08:00] VITALS: BP 156/112
[2022-04-19] MEDS: PANTOPRAZOLE SODIUM 40 MG/VIAL IV SCH (09:41)
[2022-04-19] MEDS: THIAMINE HCL 100MG TABLET PO SCH (09:42)
[2022-04-19] MEDS: FOLIC ACID 1MG TABLET PO SCH (09:42)
[2022-04-19] MEDS: MULTIVITAMINS,THER W-MINERALS TABLET PO SCH (09:43)
[2022-04-19] MEDS: HYDROMORPHONE HCL/PF 2MG/ML CPJ IV PRN (09:44)
[2022-04-19 12:00] VITALS: BP 112/75
[2022-04-19] MEDS ORDERED: METR-167 MT ×3 (12:16→13:38)
[2022-04-19] MEDS ORDERED: LEVO500T90 MT ×2 (12:16)
[2022-04-19] MEDS ORDERED: HYDR-4001 MT ×3 (12:17→13:38)
[2022-04-19] MEDS ORDERED: LEVO750T46 MT (13:38)
[2022-04-19 14:44] VITALS: BP 112/75
== END 2022-04-19 15:05 | disposition home or self-care (01) | DRG 282 ==
LOC: ER 03:56 → 6EST 06:27 → ENRESERV 07:38
PROVIDERS: ADMIT Internal Medicine; ATTEND Internal Medicine
DX: K85.20 Alcohol induced acute pancreatitis without necrosis or infection (principal); E87.6 Hypokalemia; I10 Essential (primary) hypertension; F12.90 Cannabis use, unspecified, uncomplicated; F17.200 Nicotine dependence, unspecified, uncomplicated; F10.20 Alcohol dependence, uncomplicated; K86.3 Pseudocyst of pancreas; Z91.14 Patient's other noncompliance with medication regimen; Z79.899 Other long term (current) drug therapy
CPT/HCPCS: 36415; 74176; 74177; 76700; 80048; 80053; 80076; 80305; 81003; 82150; 82550; 82607; 82746; 83605; 83735; 84100; 84703; 85025; 93970; 99285; C9113; J0360; J1170; J1200; J1956; J2060; J2270; J2405; J2765; J3411; J3480; J3490; J7030; J7042; J7060; J7070; J8597

== ENCOUNTER 2022-10-30 12:53 | Emergency (ER) | payer MEDICAID ==
[~2022-10-30] VITALS: Ht 162.6 cm; Wt 57.0 kg
[~2022-10-30 12:53] MED LIST changes: +HYDR-4001 MT; +LEVO750T68 MT; +METR-167 MT
[2022-10-30 14:10] LABS: BASOPHILS % 0.6 % (0.0-2.0); EOSINOPHILS % 0.4 % (0.0-5.0); HEMATOCRIT. 30.3 % (36.0-48.0); HEMOGLOBIN. 9.9 g/dL (12.0-16.0); LYMPHOCYTES % 32.5 % (20.0-50.0); MEAN CORPUSCULAR VOLUME 94.7 fL (81.0-99.0); MEAN PLATELET VOLUME 7.2 fl (7.4-10.4); MONOCYTES % 6.6 % (2.0-8.0); NEUTROPHILS % 59.9 % (40.0-76.0); PLATELET 228 x1000/uL (130-400); RED BLOOD CELL COUNT 3.19 mill/uL (4.2-5.4); RED CELL DISTRIBUTION WIDTH 22.7 % (11.6-14.6)
[2022-10-30 14:21] LABS: HCG SCREEN NEGATIVE
[2022-10-30 14:23] LABS: CHLORIDE 103 mEq/L (98-107)
[2022-10-30 14:39] LABS: CLARITY URINE CLEAR (CLEAR); COLOR URINE YELLOW (YELLOW); KETONES URINE NEGATIVE (NEGATIVE); LEUKOCYTE ESTERASE URINE TRACE (NEGATIVE); NITRITE URINE NEGATIVE (NEGATIVE); OCCULT BLOOD URINE NEGATIVE (NEGATIVE); PROTEIN URINE NEGATIVE (NEGATIVE); SPECIFIC GRAVITY URINE 1.008 (1.005-1.030); UROBILINOGEN URINE 0.2 E.U./dL (0.2-1.0)
[2022-10-30 14:46] LABS: PLATELET ESTIMATE NORMAL
[2022-10-30] MEDS ORDERED: ONDANSETRON HCL 4MG/2ML INJ IV STA (15:45)
[2022-10-30] MEDS ORDERED: SODIUM CHLORIDE 0.9% 1,000 ML IV ONE (15:45)
[2022-10-30] MEDS ORDERED: POTASSIUM CHLORIDE 20MEQ TABLET SR PO NR (16:00)
[2022-10-30] MEDS ORDERED: MORPHINE SULFATE 4 MG/ML CPJ (NOT FOR IM USE) IV ONE (16:15)
[2022-10-30] MEDS ORDERED: ONDA4TAB11 PO (17:57)
[2022-10-30 18:33] VITALS: BP 146/113
[2022-10-30] MEDS ORDERED: IOHEXOL-300 100 ML BOTTLE ONE (19:37)
== END 2022-10-30 19:06 | disposition home or self-care (01) ==
LOC: ER 12:53
DX: K85.90 Acute pancreatitis without necrosis or infection, unspecified (principal); D36.9 Benign neoplasm, unspecified site; I10 Essential (primary) hypertension; F12.10 Cannabis abuse, uncomplicated; Z79.899 Other long term (current) drug therapy
CPT/HCPCS: 36415; 74177; 80053; 81003; 81025; 83690; 84703; 85025; 93005; 96361; 96374; 96375; 99285; J2270; J2405; J7030; Q9967

== ENCOUNTER 2024-01-08 06:26 | Emergency (ER) | payer MEDICAID ==
[~2024-01-08] VITALS: Ht 162.6 cm; Wt 56.0 kg
[~2024-01-08 06:26] MED LIST changes: +LOSA-413 PO; -LOSA50TA3 PO; +ONDA4TAB11 PO
[2024-01-08 06:32] VITALS: O2SAT 100
[2024-01-08 07:25] LABS: BASOPHILS % 0.7 % (0.0-2.0); EOSINOPHILS % 2.5 % (0.0-5.0); HEMATOCRIT. 28.9 % (36.0-48.0); HEMOGLOBIN. 9.6 g/dL (12.0-16.0); LYMPHOCYTES % 32.2 % (20.0-50.0); MEAN CORPUSCULAR HEMOGLOBIN 32.2 pg (28.0-32.0); MEAN CORPUSCULAR HGB CONC 33.3 g/dL (31.0-37.0); MEAN CORPUSCULAR VOLUME 96.5 fL (81.0-99.0); MONOCYTES % 4.4 % (2.0-8.0); NEUTROPHILS % 60.2 % (40.0-76.0); PLATELET 231 x1000/uL (130-400); RED BLOOD CELL COUNT 2.99 mill/uL (4.2-5.4); RED CELL DISTRIBUTION WIDTH 29.8 % (11.6-14.6); WHITE BLOOD COUNT 4.2 x1000/uL (4.5-11.0)
[2024-01-08 07:27] LABS: ADD RBC MORPHOLOGY YES; DIFFERENTIAL COMMENT 1
[2024-01-08 07:39] LABS: CHLORIDE 101 mEq/L (98-107); SODIUM 138 mEq/L (136-145)
[2024-01-08 07:40] LABS: CARBON DIOXIDE 25 mEq/L (21-32)
[2024-01-08 07:45] LABS: CREATININE 0.6 mg/dL (0.6-1.0); GLUCOSE 96 mg/dL (70-105); UREA NITROGEN BLOOD 5 mg/dL (9-23)
[2024-01-08 07:46] LABS: CLARITY URINE CLEAR (CLEAR); COLOR URINE YELLOW (YELLOW); GLUCOSE URINE NEGATIVE (NEGATIVE); KETONES URINE 1+ (NEGATIVE); LEUKOCYTE ESTERASE URINE NEGATIVE (NEGATIVE); NITRITE URINE NEGATIVE (NEGATIVE); OCCULT BLOOD URINE NEGATIVE (NEGATIVE); PROTEIN URINE NEGATIVE (NEGATIVE); SPECIFIC GRAVITY URINE 1.013 (1.005-1.030); UROBILINOGEN URINE 0.2 E.U./dL (0.2-1.0)
[2024-01-08 07:47] LABS: ALANINE AMINOTRANSFERASE 16 IU/L (10-49); ALBUMIN 3.9 g/dL (3.2-4.8); ASPARTATE AMINOTRANSFERASE 40 IU/L (<34); BILIRUBIN DIRECT 0.2 mg/dL (<=3.0); BILIRUBIN TOTAL 0.6 mg/dL (0.1-1.0)
[2024-01-08 07:48] LABS: PROTEIN TOTAL 6.7 g/dL (6.0-8.3)
[2024-01-08 08:34] LABS: POTASSIUM 2.7 mEq/L (3.5-5.1)
[2024-01-08 09:23] LABS: HCG SCREEN NEGATIVE
[2024-01-08] MEDS: KCL 10MEQ/50ML PREMIX 50 ML IV ONE (11:28)
[2024-01-08] MEDS: POTASSIUM CHLORIDE 20MEQ/PACKET PO ONE (11:41)
[2024-01-08] MEDS: MAGNESIUM 1 G PREMIX 100 ML IV ONE (11:45)
[2024-01-08 12:26] LABS: ANISOCYTOSIS 4+; PLATELET ESTIMATE NORMAL
[2024-01-08] MEDS: PANTOPRAZOLE SODIUM 40 MG/VIAL IV STA (12:47)
[2024-01-08] MEDS: MORPHINE SULFATE 2 MG/ML CPJ (NOT FOR IM USE) IV ONE (12:49)
[2024-01-08 14:06] LABS: POTASSIUM 3.5 mEq/L (3.5-5.1)
[2024-01-08 17:02] VITALS: BP 163/86; PULSE 69; RESP 16; TEMP 98.3
[2024-01-12] MEDS ORDERED: CHLO25CA11 MT (13:11)
== END 2024-01-08 17:09 | disposition home or self-care (01) ==
LOC: ER 06:26
DX: E87.6 Hypokalemia (principal); R10.13 Epigastric pain; I10 Essential (primary) hypertension; F12.90 Cannabis use, unspecified, uncomplicated; F10.20 Alcohol dependence, uncomplicated
CPT/HCPCS: 80076; 80048; 81003; 81025; 84703; 83690; 83735; 84132; 85025; 36415; 76705; 93005; 96368; 96365; 96375; 99285; J3475; C9113; J3480; J2270; Z7610 ×2; 96367

== ENCOUNTER 2024-01-08 20:18 | Emergency (ER) | payer MEDICAID ==
[2024-01-08 20:27] VITALS: PULSE 124
[2024-01-08] MEDS ORDERED: KETOROLAC 30MG/ML VIAL IV STA (20:37)
[2024-01-08] MEDS ORDERED: SODIUM CHLORIDE 0.9% 1,000 ML IV ONE (20:45)
== END 2024-01-08 21:07 | disposition left against medical advice (07) ==
LOC: ER 20:18
DX: R10.9 Unspecified abdominal pain (principal); R11.2 Nausea with vomiting, unspecified; Z53.21 Procedure and treatment not carried out due to patient leaving prior to being seen by health care provider
CPT/HCPCS: J7030

== ENCOUNTER 2024-10-22 22:03 | Emergency (ER) | payer MEDICAID ==
[~2024-10-22] VITALS: Ht 162.6 cm; Wt 60.0 kg
[~2024-10-22 22:03] MED LIST changes: +AMLO-905 MT; -AMLO10TA4 MT; +CHLO25CA11 MT; -HYDR-4001 MT; -LEVO750T68 MT; -METR-167 MT; -ONDA4TAB11 PO
[2024-10-22 22:05] VITALS: O2SAT 100
[2024-10-22 22:13] VITALS: BP 155/102; PULSE 126; RESP 20; TEMP 36.9; O2SAT 100
== END 2024-10-23 01:48 | disposition home or self-care (01) ==
LOC: ER 22:03
DX: S01.01XA Laceration without foreign body of scalp, initial encounter (principal); G89.11 Acute pain due to trauma; F10.129 Alcohol abuse with intoxication, unspecified; I10 Essential (primary) hypertension; F12.90 Cannabis use, unspecified, uncomplicated; Z79.899 Other long term (current) drug therapy; W19.XXXA Unspecified fall, initial encounter; Y93.89 Activity, other specified; Y92.89 Other specified places as the place of occurrence of the external cause; Y99.8 Other external cause status; Y90.9 Presence of alcohol in blood, level not specified
CPT/HCPCS: 12001; 99284; 70450; Z7610

== ENCOUNTER 2025-04-25 09:29 | Emergency (ER) | payer MEDICAID ==
[~2025-04-25] VITALS: Ht 162.6 cm; Wt 55.0 kg
[~2025-04-25 09:29] MED LIST changes: -CHLO25CA11 MT; +FAMO-135 MT; -LOSA-413 PO
[2025-04-25 09:39] VITALS: O2SAT 100
[2025-04-25] MEDS ORDERED: KETOROLAC 15MG/ML VIAL IV ONE (10:00)
[2025-04-25] MEDS ORDERED: ONDANSETRON HCL 4MG/2ML INJ IV ONE (10:00)
[2025-04-25 10:16] LABS: HEMATOCRIT. 29.7 % (36.0-48.0); HEMOGLOBIN. 9.6 g/dL (12.0-16.0); MEAN PLATELET VOLUME 7.6 fl (7.4-10.4); PLATELET 208 x1000/uL (130-400); RED BLOOD CELL COUNT 3.44 mill/uL (4.2-5.4); RED CELL DISTRIBUTION WIDTH 31.5 % (11.6-14.6)
[2025-04-25 10:28] LABS: HCG SCREEN NEGATIVE
[2025-04-25 10:38] LABS: CREATININE 0.7 mg/dL (0.6-1.0); UREA NITROGEN BLOOD 7 mg/dL (9-23)
[2025-04-25 10:40] LABS: ASPARTATE AMINOTRANSFERASE 103 IU/L (<34); BILIRUBIN DIRECT 0.5 mg/dL (<=3.0); BILIRUBIN TOTAL 1.4 mg/dL (0.1-1.0); PROTEIN TOTAL 7.6 g/dL (6.0-8.3)
[2025-04-25] MEDS ORDERED: POTASSIUM CHLORIDE 20MEQ TABLET SR PO ONE (10:45)
[2025-04-25 11:09] LABS: EOSINOPHILS % MANUAL 1.0 % (0.0-5.0); LYMPHOCYTES % MANUAL 35.0 % (20.0-60.0); MONOCYTES % MANUAL 3.0 % (2.0-8.0); NEUTROPHILS % MANUAL 61.0 % (45.0-75.0); PLATELET ESTIMATE 3
[2025-04-25] MEDS: KETOROLAC 15MG/ML VIAL IV SCH (12:25)
[2025-04-25] MEDS: ONDANSETRON HCL 4MG/2ML INJ IV SCH (12:25)
[2025-04-25] MEDS: KCL 20MEQ/100ML PREMIX 100 ML IV ONE (12:25)
[2025-04-25] MEDS: POTASSIUM CHLORIDE 20MEQ TABLET SR PO SCH (12:25)
[2025-04-25] MEDS: SODIUM CHLORIDE 0.9% 1,000 ML IV ONE (12:25)
[2025-04-25 14:22] VITALS: BP 132/85; PULSE 89; RESP 16; TEMP 36.8; O2SAT 100
== END 2025-04-25 14:24 | disposition home or self-care (01) ==
LOC: ER 09:29
DX: E86.0 Dehydration (principal); E87.6 Hypokalemia; F10.10 Alcohol abuse, uncomplicated; F12.90 Cannabis use, unspecified, uncomplicated; I10 Essential (primary) hypertension; Z79.899 Other long term (current) drug therapy; Z87.19 Personal history of other diseases of the digestive system; Y90.9 Presence of alcohol in blood, level not specified
CPT/HCPCS: 80076; 80048; 80320; 84703; 83690; 85025; 36415; 96365; 96375; 99284; J1885; J2405; J3480; J7030; G0480